=== PATIENT | female | born 1955 | race Caucasian/White ===

== ENCOUNTER 2018-02-13 20:59 | Emergency (ER) | payer SELFPAY ==
--- NOTE | 2018-02-13 21:46 | ED PDOC ---
HPI: Psych/Substance Abuse Time Seen by Provider: 02/13/18 21:10 Chief Complaint (Nursing): Psychiatric Evaluation Chief Complaint (Provider): Psychiatric Evaluation ED Caveat: Other (Clinical Condition) History Per: Patient History/Exam Limitations: clinical condition Additional Complaint(s): Patient is a 62 y/o female who arrives to the ED with transit police because she was found trespassing rail [address] tracks prior to arrival. Initially there was speculation that she was a possible missing person but per officer Dulmer she was cleared by police. Patient appeared confused with nonsensical speech patterns and was therefore brought to the ED. Patient history is tangential with flight of ideas, and not providing consistent history. States "Im a nomad but strong willed" when asked if she has any pain. Past Medical History Reviewed: Historical Data, Nursing Documentation, Vital Signs, Unable To Obtain (unreliable historian) Vital Signs: Last Vital Signs Temp 98.0 F 02/13/18 21:00 Pulse 77 02/13/18 21:00 Resp 16 02/13/18 21:00 BP 146/77 02/13/18 21:00 Pulse Ox 99 02/13/18 21:00 - Family History Family History: States: Unknown Family Hx - Living Arrangements Living Arrangements: Other (likely homeless) - Social History Alcohol: None Drugs: Denies - Home Medications Home Medications: Ambulatory Orders Medication Instructions Recorded Unobtainable 02/14/18 - Allergies Allergies/Adverse Reactions: Allergies Allergy/AdvReac Type Severity Reaction Status Date / Time No Known Allergies Allergy Verified 02/13/18 21:00 Review of Systems Review Of Systems: ROS cannot be obtained secondary to pt's inabilty to answer questions. (Clinical condition) Physical Exam - Reviewed Nursing Documentation Reviewed: Yes Vital Signs Reviewed: Yes - Physical Exam Appears: Positive for: Non-toxic (poor hygiene unkempt) Head Exam: Positive for: ATRAUMATIC, NORMOCEPHALIC Skin: Positive for: Normal Color, Warm, Dry Eye Exam: Positive for: EOMI, Normal appearance, PERRL Neck: Positive for: Normal, Painless ROM, Supple Cardiovascular/Chest: Positive for: Regular Rate, Rhythm. Negative for: Murmur Respiratory: Positive for: Normal Breath Sounds. Negative for: Respiratory Distress Gastrointestinal/Abdominal: Positive for: Normal Exam, Soft. Negative for: Tenderness Back: Positive for: Normal Inspection. Negative for: L CVA Tenderness, R CVA Tenderness Extremity: Positive for: Normal ROM. Negative for: Pedal Edema, Deformity Neurologic/Psych: Positive for: Alert, Oriented, Other (Poor insight with delusions and tangental speech pattern; flight of ideas. Symmetrical strength in extremities; Speech intact). Negative for: Motor/Sensory Deficits - Laboratory Results Result Diagrams: 02/13/18 21:40 02/13/18 21:40 - ECG O2 Sat by Pulse Oximetry: 99 (RA) Pulse Ox Interpretation: Normal Medical Decision Making Medical Decision Making: Time: 21:14 Impression: Plan to have 1:1 observation and psych workup; r/o intoxication or metabolic derangement Plan: --EKG --Acetaminophen --Alcohol Serum --CMP --Drug screen --Salicylate --Troponin I --CBC w/ diff --1:1 Observation --Glucose POC --UA labs reviewed and unremarkable utox and etoh neg crisis eval ordered and maintain 1:1 Scribe Attestation: Documented by Min Srivastava, acting as a scribe for Nehemiah Villarreal MD Provider Scribe Attestation: All medical record entries made by the Scribe were at my direction and personally dictated by me. I have reviewed the chart and agree that the record accurately reflects my personal performance of the history, physical exam, medical decision making, and the department course for this patient. I have also personally directed, reviewed, and agree with the discharge instructions and disposition. Disposition - Clinical Impression Clinical Impression: Psychosis - Patient ED Disposition Is Patient to be Admitted: Transfer of Care - Disposition Disposition: Transfer of Care Disposition Time: 23:55 Condition: FAIR Forms: [employer] (Urdu) Patient Signed Over To: Malik Blanchard Handoff Comments: pending crisis
[2018-02-13 21:48] LABS: BASO % 0.5 % (0.0-2.0); EOS # 0.2 K/uL (0.0-0.7); EOS % 1.6 % (0.0-4.0); HEMOGLOBIN 12.4 g/dL (12.0-16.0); LYMPH # 0.7 K/uL (1.0-4.3); LYMPH % 7.6 % (20.0-40.0); MEAN CELL VOLUME 92.7 fl (81.0-99.0); MEAN CORPUSCULAR HEMOGLOBIN 30.4 pg (27.0-31.0); MEAN CORPUSCULAR HGB CONC 32.8 g/dL (33.0-37.0); MEAN PLATELET VOLUME 9.8 fl (7.2-11.7); MONO # 0.6 K/uL (0.0-0.8); MONO % 6.3 % (0.0-10.0); NEUT # 7.7 K/uL (1.8-7.0); NRBC % 0.1 % (0.0-0.0); PLATELET COUNT 270 K/uL (130-400); RBC 4.06 Mil/uL (3.80-5.20); RED CELL DISTRIBUTION WIDTH 15.4 % (11.5-14.5); WHITE BLOOD COUNT 9.2 K/uL (4.8-10.8)
[2018-02-13 22:00] LABS: SQUAMOUS EPITHIAL 1 /hpf (0-5); URINE BACTERIA RARE (<OCC); URINE BILIRUBIN NEGATIVE (NEGATIVE); URINE BLOOD NEGATIVE (NEGATIVE); URINE CLARITY SLIGHTY-CLOUDY (Clear); URINE COLOR YELLOW (YELLOW); URINE GLUCOSE (UA) NEG (Normal); URINE LEUKOCYTE ESTERASE SMALL Leu/uL (Negative); URINE PROTEIN NEGATIVE (NEGATIVE)
[2018-02-13 22:03] LABS: ALB/GLOB RATIO 1.4 (1.0-2.1); ALBUMIN 4.2 g/dL (3.5-5.0); ALT/SGPT 33 U/L (9-52); AST/SGOT 28 U/L (14-36); BLOOD UREA NITROGEN 10 mg/dl (7-17); CALCIUM 9.9 mg/dL (8.4-10.2); GFR NON-AFRICAN AMERICAN > 60
[2018-02-13 22:04] LABS: ACETAMINOPHEN < 10.0 ug/ml (10.0-30.0); SALICYLATE < 1.0 mg/dl
[2018-02-13 22:15] LABS: BARBITURATES, UR NEGATIVE (NEGATIVE); BENZODIAZEPINES, UR NEGATIVE (NEGATIVE); OPIATES, UR NEGATIVE (NEGATIVE); PHENCYCLIDINE, UR NEGATIVE (NEGATIVE)
[2018-02-13 23:09] LABS: ANISOCYTOSIS SLIGHT; BANDS 2 % (0-2); BASOPHIL 1 % (0-2); EOSINOPHIL 2 % (0-7); LYMPHOCYTE 9 % (20-50); MONOCYTE 6 % (0-10); NEUTROPHIL 80 % (42-75); PLATELET ESTIMATE NORMAL (NORMAL); TOTAL CELLS COUNTED 100
[2018-02-13 23:10] LABS: LARGE PLATELETS PRESENT; TOXIC GRANULATION PRESENT
--- NOTE | 2018-02-14 00:30 | ED PDOC ---
- Laboratory Results Result Diagrams: 02/13/18 21:40 02/13/18 21:40 - ECG O2 Sat by Pulse Oximetry: 99 (RA) Medical Decision Making Medical Decision Making: Time: :00 --Patient is endorsed to provider by Dr. Villarreal pending crisis evaluation. Time: 32 --Upon crisis evaluation, patient will require [facility] screening, as per Dr. Grosmsan. Time: 699 --Case referred to Dr. Mederos pending [facility] screening. Time: 699 --Case referred to Dr. Wright pending bed at [facility]. Scribe Attestation: Documented by Kendra Burroughs, acting as a scribe for Malik Blanchard MD. Provider Scribe Attestation: All medical record entries made by the Scribe were at my direction and personally dictated by me. I have reviewed the chart and agree that the record accurately reflects my personal performance of the history, physical exam, medical decision making, and the department course for this patient. I have also personally directed, reviewed, and agree with the discharge instructions and disposition. Disposition - Clinical Impression Clinical Impression: Psychosis - Disposition Disposition: Transfer of Care Disposition Time: 07:00 Condition: FAIR Forms: [employer] (Belarusian) Patient Signed Over To: Neri Mederos Handoff Comments: pending [facility] screening
--- NOTE | 2018-02-14 07:28 | CARD ---
APPROVED REPORT Date of service: 02/13/2018 <Conclusion> Normal sinus rhythm Normal ECG
--- NOTE | 2018-02-14 09:42 | CP.PCM.CON ---
History of Present Illness - History of Present Illness History of Present Illness: Psychiatry consult note CC: "I'm a yogi" HPI: Patient difficult to interview due to acute disorganized speech and thought process. She does not believe she needs psychiatric treatment or medications. She believes she has special healing abilities and believes that was a conspiracy to get her to the hospital. A + O x 3. Additional info: 62 year old, C/S/F, who was zeb into [facility] ED by Joe MARLEY and [employer], secondary to pt being foun trespassing in rail yard with clothes and belongings soaked in urine, and speaking nonsensical. As per police, patient was reported missing in [place]. When CW entered the room to initiate assessment with pt, pt was laying on the stretcher with her eyes closed. Pt was dressed in hospital gown, disheaveled and unkempt appearance. 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 While assessing pt, pt pulled down her gown and showed CW the area where she had the bruise;however, CW did not notice any tubbs or bruising on the area pt was talking about it. At the same time, CW asked pt if she had pain in the area she exposed to CW, but pt declined having any pain. Pt continued to report that she lives in many places as she is a "nomad" and she does not like to stay in one place. Pt also began to exhibit "flight of ideas" as pt stated that the "creative side of her brain" made her write music and be a poet. Pt stated, " I am like President Obama; I ran marathInsane Logic and I strong willed person. 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 Pt negated currently having any SI and HI. Pt denied having A/V/T hallucinations or delusions;however, it was evident pt is presenting with some level of psychosis , whereas pt thought process demonstrate pt is experiencing ''flight of ideas" and disorganized thinking. Pt appears to have some sleep disturbances as pt stated, " I do not sleep much and it is my own business when I do. "Pt was not observed to be responding to any internal or external stimuli. Pt's psychomotor skills remained fair. Pt's gait was steady. Pt seemed to be in some distress at the time of evaluation. Pt was alert and oriented x3. Pt's speech was tangential. Pt's affect was blunted and mood congruent to situation as evidence by pt not remembering exactly why she was brought into the hospital by Joe MARLEY. 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 As per Rufina , pt had an admission with them back in September 04, 2014, whereas pt was smearing feces all over the place. Pt is known to be prescribed Prolixin, Cogentin, and Ambien,but pt is non-adherent with taking medications as prescribed, as well as, following up with psychotherapy. MSE: A + O x 3, rapid/pressured speech, psychomotor agitated, good eye contact, thought process- non-linear/tangential/flight of ideas, though content- grandiose delusions/paranoia, denies AH/VH/SI/HI; poor I/J; poor impulse control Impression: 62 yo female presents acute manic and psychotic, not agreeable to psychiatric treatment at this time. -Screen for involuntary psychiatric admission Past Patient History - Past Social History Alcohol: None Drugs: Denies - CARDIAC Hx Cardiac Disorders: No Hx Hypertension: No - PULMONARY Hx Tuberculosis: No - NEUROLOGICAL HX Cerebrovascular Accident: No Hx Seizures: No - HEMATOLOGICAL/ONCOLOGICAL Hx Cancer: No Hx Human Immunodeficiency Virus (HIV): No - GENITOURINARY/GYNECOLOGICAL Hx Sexually Transmitted Disorders: No Meds Allergies/Adverse Reactions: Allergies Allergy/AdvReac Type Severity Reaction Status Date / Time No Known Allergies Allergy Verified 02/13/18 21:00 Results - Vital Signs Recent Vital Signs: Last Vital Signs Temp 97 F L 02/14/18 07:57 Pulse 65 02/14/18 07:57 Resp 19 02/14/18 07:57 BP 150/86 02/14/18 07:57 Pulse Ox 98 02/14/18 07:57 - Labs Result Diagrams: 02/13/18 21:40 02/13/18 21:40 Labs: Laboratory Results - last 24 hr 02/13/18 02/13/18 02/13/18 21:40 21:40 21:40 WBC 9.2 RBC 4.06 Hgb 12.4 Hct 37.7 MCV 92.7 MCH 30.4 MCHC 32.8 L RDW 15.4 H Plt Count 270 MPV 9.8 Neut % (Auto) 84.0 H Lymph % (Auto) 7.6 L [place] % (Auto) 6.3 Eos % (Auto) 1.6 Baso % (Auto) 0.5 Neut # (Auto) 7.7 H Lymph # (Auto) 0.7 L [place] # (Auto) 0.6 Eos # (Auto) 0.2 Baso # (Auto) 0.0 Neutrophils % (Manual) 80 H Band Neutrophils % 2 Lymphocytes % (Manual) 9 L Monocytes % (Manual) 6 Eosinophils % (Manual) 2 Basophils % (Manual) 1 Toxic Granulation Present Platelet Estimate Normal Large Platelets Present Anisocytosis (manual) Slight Sodium 142 Potassium 4.0 Chloride 107 Carbon Dioxide 28 Anion Gap 11 BUN 10 Creatinine 0.7 Est GFR ( Amer) > 60 Est GFR (Non-Af Amer) > 60 POC Glucose (mg/dL) Random Glucose 100 Calcium 9.9 Total Bilirubin 0.6 AST 28 ALT 33 Alkaline Phosphatase 92 Troponin I < 0.0120 Total Protein 7.3 Albumin 4.2 Globulin 3.0 Albumin/Globulin Ratio 1.4 Urine Color Urine Clarity Urine pH Ur Specific [place] Urine Protein Urine Glucose (UA) Urine Ketones Urine Blood Urine Nitrate Urine Bilirubin Urine Urobilinogen Ur Leukocyte Esterase Urine RBC (Auto) Urine Microscopic WBC Ur Squamous Epith Cells Urine Bacteria Salicylates < 1.0 Urine Opiates Screen Urine Methadone Screen Acetaminophen < 10.0 L Ur Barbiturates Screen Ur Phencyclidine Scrn Ur Amphetamines Screen U Benzodiazepines Scrn U Oth Cocaine Metabols U Cannabinoids Screen Alcohol, Quantitative < 10 02/13/18 02/13/18 02/13/18 21:51 21:52 21:52 WBC RBC Hgb Hct MCV MCH MCHC RDW Plt Count MPV Neut % (Auto) Lymph % (Auto) [place] % (Auto) Eos % (Auto) Baso % (Auto) Neut # (Auto) Lymph # (Auto) [place] # (Auto) Eos # (Auto) Baso # (Auto) Neutrophils % (Manual) Band Neutrophils % Lymphocytes % (Manual) Monocytes % (Manual) Eosinophils % (Manual) Basophils % (Manual) Toxic Granulation Platelet Estimate Large Platelets Anisocytosis (manual) Sodium Potassium Chloride Carbon Dioxide Anion Gap BUN Creatinine Est GFR ( Amer) Est GFR (Non-Af Amer) POC Glucose (mg/dL) 92 Random Glucose Calcium Total Bilirubin AST ALT Alkaline Phosphatase Troponin I Total Protein Albumin Globulin Albumin/Globulin Ratio Urine Color Yellow Urine Clarity Slighty-cloudy Urine pH 6.0 Ur Specific [place] 1.017 Urine Protein Negative Urine Glucose (UA) Neg Urine Ketones Negative Urine Blood Negative Urine Nitrate Negative Urine Bilirubin Negative Urine Urobilinogen 2.0 H Ur Leukocyte Esterase Small Urine RBC (Auto) 2 Urine Microscopic WBC 6 H Ur Squamous Epith Cells 1 Urine Bacteria Rare Salicylates Urine Opiates Screen Negative Urine Methadone Screen Negative Acetaminophen Ur Barbiturates Screen Negative Ur Phencyclidine Scrn Negative Ur Amphetamines Screen Negative U Benzodiazepines Scrn Negative U Oth Cocaine Metabols Negative U Cannabinoids Screen Negative Alcohol, Quantitative
--- NOTE | 2018-02-14 12:09 | ED PDOC ---
- Laboratory Results Result Diagrams: 02/13/18 21:40 02/13/18 21:40 - ECG O2 Sat by Pulse Oximetry: 98 Medical Decision Making Medical Decision Making: Time: 0700 -- Patient endorsed to me by Dr. Blanchard, pending [facility] evaluation. Scribe Attestation: Documented by Stas James acting as a scribe for Dr. Neri Mederos MD. Provider Scribe Attestation: All medical record entries made by the Scribe were at my direction and personally dictated by me. I have reviewed the chart and agree that the record accurately reflects my personal performance of the medical decision making for this patient. I have also personally directed, reviewed, and agree with the discharge instructions and disposition. Disposition - Clinical Impression Clinical Impression: Psychosis - POA Present On Arrival: None - Disposition Disposition: Transfer of Care Disposition Time: 14:24 Condition: FAIR Forms: [employer] (Macedonian) Patient Signed Over To: Ann Cowan
--- NOTE | 2018-02-14 14:05 | RAD ---
Date of service: 02/14/2018 HISTORY: Cough COMPARISON: No prior. FINDINGS: LUNGS: The lungs are hyperinflated and there is peribronchial thickening with chronic changes in both lungs. No focal consolidation. PLEURA: No significant pleural effusion identified, no pneumothorax apparent. CARDIOVASCULAR: Normal. OSSEOUS STRUCTURES: No significant abnormalities. VISUALIZED UPPER ABDOMEN: Normal. OTHER FINDINGS: None. IMPRESSION: No active pulmonary disease. COPD.
--- NOTE | 2018-02-15 00:24 | ED PDOC ---
- Laboratory Results Result Diagrams: 02/13/18 21:40 02/13/18 21:40 - ECG O2 Sat by Pulse Oximetry: 100 Medical Decision Making Medical Decision Making: Received pt as sign out from Dr. Mederos at 3pm. Pt remains stable and comfortable. Pt to be transfered to Dr. Blanchard pending transfer to [facility] unit ([facility] Disposition - Clinical Impression Clinical Impression: Psychosis - POA Present On Arrival: None - Disposition Disposition: Transfer of Care Disposition Time: 00:00 Condition: STABLE
--- NOTE | 2018-02-15 07:09 | ED PDOC ---
- Laboratory Results Result Diagrams: 02/13/18 21:40 02/13/18 21:40 <Nehemiah Villarreal III - Last Filed: 02/15/18 12:32> - Laboratory Results Result Diagrams: 02/13/18 21:40 02/13/18 21:40 - ECG O2 Sat by Pulse Oximetry: 99 (RA) Pulse Ox Interpretation: Normal <Jr Wright - Last Filed: 02/16/18 09:57> Medical Decision Making <Nehemiah Villarreal III - Last Filed: 02/15/18 12:32> <Jr Wright - Last Filed: 02/16/18 09:57> Medical Decision Making: patient accepted for transfer to [facility]. [place] Srinivasan to provide BLS transport, left ED awake, alert. (Nehemiah Villarreal III) Time: 0700 --Patient endorsed to this provider, pending bed at [facility]. Scribe Attestation: Documented by Kavitha Ryan, acting as a scribe for Jr Wright MD Provider Scribe Attestation: All medical record entries made by the Scribe were at my direction and personally dictated by me. I have reviewed the chart and agree that the record accurately reflects my personal performance of the history, physical exam, medical decision making, and the department course for this patient. I have also personally directed, reviewed, and agree with the discharge instructions and disposition. (Jr Wright) Disposition <Nehemiah Villarreal III - Last Filed: 02/15/18 12:32> Counseled Patient/Family Regarding: Studies Performed, Diagnosis, Need For Followup - POA Present On Arrival: None - Disposition Disposition: Other Institution ([facility]) Disposition Time: 15:00 <Jr Wright - Last Filed: 02/16/18 09:57> - Clinical Impression Clinical Impression: Psychosis - Disposition Condition: STABLE
[2018-02-15 10:15] VITALS: TEMP 98.6
[2018-02-15 10:16] VITALS: BP 112/73; PULSE 83
[2018-02-15 10:23] VITALS: RESP 18
[2018-02-18 08:59] VITALS: O2SAT 100
== END 2018-02-15 10:26 | disposition short-term general hospital (02) ==
LOC: H.ER 20:59
DX: F29 Unspecified psychosis not due to a substance or known physiological condition (principal); E11.9 Type 2 diabetes mellitus without complications; F31.9 Bipolar disorder, unspecified; Z59.0 Homelessness; J44.9 Chronic obstructive pulmonary disease, unspecified
CPT/HCPCS: 80053; 81003; 82948; 84484; 85025; 93005; 99285; G0480